=== PATIENT | female | born 1930 | race Caucasian/White ===

== ENCOUNTER 2016-12-10 03:25 | Inpatient (IN) | payer MEDICAID, OTHER ==
[~2016-12-10] VITALS: Ht 154.9 cm; Wt 74.4 kg
[~2016-12-10 03:25] MED LIST: DIVA250E1 PO; LISI10TA11 PO; METF500T PO; RISP1TAB1 PO; SIMV20TA1 PO; [UNRECOGNIZED DRUG - CODE] PO
[2016-12-10 03:43] VITALS: BP 149/81
[2016-12-10 04:13] LABS: BASOPHILS # (AUTO) 0.1 K/uL (0.00-0.22); BASOPHILS % (AUTO) 1.8 % (0.0-2.0); EOSINOPHILS % (AUTO) 0.5 % (0.0-4.0); HEMATOCRIT 39.8 % (36-48); HEMOGLOBIN 13.2 g/dL (12.0-16.0); LYMPHOCYTES # (AUTO) 0.5 K/uL (2.5-16.5); MEAN CORPUSCULAR HEMOGLOBIN 31 pg (27-31); MEAN CORPUSCULAR HGB CONC 33 g/dL (33-37); MEAN CORPUSCULAR VOLUME 93 fL (80-94); MONOCYTES # (AUTO) 0.4 K/uL (0.8-1.0); MONOCYTES % (AUTO) 5.3 % (1.7-9.3); NEUTROPHILS # (AUTO) 6.9 K/uL (1.8-7.7); NEUTROPHILS % (AUTO) 85.5 % (42.2-75.2); PLATELET COUNT (AUTO) 221 K/uL (140-450); RED BLOOD CELL COUNT(AUTO) 4.26 MIL/uL (4.20-5.40); RED CELL DISTRIBUTION WIDTH 12.8 % (11.6-13.7); WHITE BLOOD COUNT (AUTO) 7.9 K/uL (4.8-10.8)
[2016-12-10 04:22] LABS: LYMPHOCYTES % (AUTO) 6.9 % (20.5-51.1)
[2016-12-10 04:30] LABS: ALANINE AMINOTRANSFERASE 24 U/L (14-59); ALBUMIN 3.6 g/dL (3.4-5.0); ALKALINE PHOSPHATASE 70 U/L (46-116); ANION GAP 11.5 (8-16); ASPARTATE AMINOTRANSFERASE 130 U/L (15-37); CALCIUM 8.9 mg/dL (8.5-10.1); CARBON DIOXIDE 26.4 mmol/L (21-32); CHLORIDE 104 mmol/L (98-107); CREATININE 1.1 mg/dL (0.6-1.3); GLUCOSE 215 mg/dL (74-106); POTASSIUM 3.9 mmol/L (3.5-5.1); SODIUM SERUM 138 mmol/L (136-145); TOTAL BILIRUBIN 0.7 mg/dL (0.0-1.0); TOTAL PROTEIN, SERUM 7.6 g/dL (6.4-8.2); UREA NITROGEN, BLOOD 29 mg/dL (7-18)
--- NOTE | 2016-12-10 06:38 | NUR ---
PT TAKEN TO BED 8
--- NOTE | 2016-12-10 06:42 | NUR ---
86 Y/O F BIB FAMILY W/C/O ABD PAIN WHICH RADIATES TO THE BACK, N/V, AND CHILLS X TODAY. 12/30 PAIN. PT BREATHING IS UNLABORED AND CLEAR BILAT. HR EVEN AND REGULAR; PT DENIES ANY FEVER, CP, SOB, OR COUGH AT THIS TIME MED HX DM, HTN, DEMENTIA, SCHIZOPHRENIA,UTIs,PARKINSONS AND LEGALLY BLIND.
--- NOTE | 2016-12-10 07:18 | NUR ---
Pt report given to GOLDEN SANTILLAN . Transfer of care at this time.
--- NOTE | 2016-12-10 07:20 | NUR ---
REPORT RECEIVED FROM ARIES AMAYA. DR SALCIDO AT BEDSIDE.
--- NOTE | 2016-12-10 07:23 | NUR ---
Dr. Rosario evaluating patient at bedside.
--- NOTE | 2016-12-10 07:52 | NUR ---
# 14 FR IN N OUT catheter utilizing sterile technique. Immediate return of 100 ml SAW CLEAR urine noted. Bedside drainage bag placed below level of bladder. Urine sample collected and sent to lab. Pt tolerated procedure WELL.
--- NOTE | 2016-12-10 07:53 | NUR ---
US AT BEDSIDE.
--- NOTE | 2016-12-10 07:58 | NUR ---
PT TAKEN TO CT VIA GURNEY BY ELDON AND STUDENT TARI.
--- NOTE | 2016-12-10 08:19 | NUR ---
PT BACK FROM CT.
--- NOTE | 2016-12-10 08:53 | NUR ---
cytogenetics technologist at bedside.
[2016-12-10] MEDS ORDERED: ONDANSETRON 4 MG/2 ML VIAL IVP ONE (08:55)
[2016-12-10] MEDS ORDERED: NACL 0.9% 1,000 ML IV ONE (08:55)
--- NOTE | 2016-12-10 09:00 | NUR ---
PT VOMITING ER MADE AWARE. NEW ORDER FOR ZOFRAN.
[2016-12-10] MEDS ORDERED: MORPHINE SULFATE 4 MG/ML SYR IVP ONE (09:05)
--- NOTE | 2016-12-10 09:08 | NUR ---
xray at bedside.
--- NOTE | 2016-12-10 09:10 | NUR ---
22g IV TO LFA. MEDS GIVEN PER MAR. PT KATRIN WELL.
--- NOTE | 2016-12-10 10:15 | NUR ---
Patient will be admitted to care of DR. SCHULTE. Admited to Med/Surg. Will go to room 123-B. Belongings list completed. Report to TYRELL CLEMENTE.
--- NOTE | 2016-12-10 10:20 | NUR ---
PT PLACED ON 2L VIA N/C FOR PULSE OX 92%. ER MADE AWARE.
--- NOTE | 2016-12-10 10:51 | NUR ---
PT TAKEN TO FLOOR VIA GURNEY BY [facility].
--- NOTE | 2016-12-10 10:55 | NUR ---
PT ARRIVED ON UNIT WITH ER NURSE ON [facility]. PT IS SLEEPING. ON NC 2L, NO DISTRESS NOTED. VS WNL. PT HAS IV ON L F/A 22G SL. UNABLE TO ASSESS PT'S GAIT AND NEURO STATUS AT THIS TIME. WILL ASSESS WHEN PT WAKES UP. FALL PRECAUTION SIGN POSTED. CALL LIGHT WITHIN REACH. WILL CONTINUE TO MONITOR.
[2016-12-10 11:00] VITALS: BP 120/54
[2016-12-10] MEDS ORDERED: MORPHINE SULFATE 4 MG/ML SYR IVP PRN (11:10)
[2016-12-10] MEDS: DEXT 5% /NACL 0.9% 1,000 ML IV SCH ×2 (11:10→21:10)
[2016-12-10] MEDS ORDERED: MORPHINE SULFATE 2 MG/ML SYR IVP PRN (11:10)
[2016-12-10] MEDS ORDERED: ONDANSETRON 4 MG/2 ML VIAL IVP PRN (11:10)
[2016-12-10] MEDS: BLOOD GLUCOSE MONITORING 1 DEV DEV FS SCH ×3 (11:30→20:37)
[2016-12-10 12:00] VITALS: BP 115/54
--- NOTE | 2016-12-10 12:54 | NUR ---
PER GRANDDAUGHTER, PT IS LEGALLY BLIND. SIGN POSTED.
[2016-12-10] MEDS ORDERED: OLAN2.5T1 PO (13:44)
[2016-12-10] MEDS ORDERED: RISP0.5T PO (13:48)
--- NOTE | 2016-12-10 14:15 | NUR ---
GRANDDAUGHTER AND DAUGHTER AT BEDSIDE. UPDATED THEM ON PLAN OF CARE. ATTACHED LEAD CUSTODIAL ENGINEER CALL LIGHT AND TAUGHT PT TO USE CALL LIGHT. PT VERBALIZED UNDERSTANDING. CALL LIGHT IN PT'S HANDS, WILL CONTINUE TO MONITOR.
--- NOTE | 2016-12-10 14:32 | NUR ---
CM NOTE INITIAL REVIEW FAXED TO [facility] / FAX# [phone], ATTN: MOE [phone]
[2016-12-10 14:48] LABS: CHOL/HDL RATIO 2.8 (1-4.5)
[2016-12-10 16:00] VITALS: BP 107/54
--- NOTE | 2016-12-10 16:00 | NUR ---
VS WNL. ASKED PT IF WANTS PAIN MED, PT REFUSED. CALL LIGHT WITHIN REACH. WILL CONTINUE TO MONITOR.
--- NOTE | 2016-12-10 17:30 | NUR ---
NO DISTRESS NOTED. NO COMPLAINTS AT THIS TIME. CALL LIGHT WITHIN REACH. WILL CONTINUE TO MONITOR.
--- NOTE | 2016-12-10 19:30 | NUR ---
ENDORSED CARE OF PT TO NEGATIVE RESTORER NURSE AT BEDSIDE. PT IN STABLE CONDITION.
--- NOTE | 2016-12-10 19:31 | NUR ---
RECEIVED ENDORSEMENT FROM AM NURSE. PT IS SLEEPING, NO S/S OF DISTRESS. NO COMPLAINTS OF PAIN AT THIS TIME. PT HAS AN IV ON THE LEFT FOREARM, 22G, INTACT AND PATENT. RE-ORIENTED PT TO THE UNIT, DISCUSSED PLAN OF CARE WITH PATIENT, NEEDS REINFORCEMENT NEEDED. CALL LIGHT WITHIN REACH. SAFETY CHECKS IN PLACE. WILL CONTINUE TO MONITOR FOR ANY CHANGES.
[2016-12-10] MEDS: DIVALPROEX SPRINKLES 125 MG CAPDR PO SCH (20:51)
[2016-12-10] MEDS: SIMVASTATIN 20 MG TAB PO SCH (20:51)
[2016-12-10] MEDS: FAMOTIDINE 20 MG TAB PO SCH (20:51)
--- NOTE | 2016-12-10 21:30 | NUR ---
DUE MEDS GIVEN, WELL TOLERATED. WILL CONTINUE TO MONITOR.
[2016-12-11] VITALS: BP 97/56
--- NOTE | 2016-12-11 | NUR ---
VITAL SIGNS WITHIN NORMAL LIMITS, WILL CONTINUE TO MONITOR. NO S/S OF DISTRESS. SAFETY CHECKS IN PLACE.
--- NOTE | 2016-12-11 01:04 | NUR ---
MADE ROUNDS, PT IS SEEN ASLEEP. NO S/S OF DISTRESS. NO COMPLAINTS OF PAIN. WILL CONTINUE TO MONITOR FOR ANY CHANGES.
--- NOTE | 2016-12-11 03:25 | NUR ---
MADE ROUNDS, PT IS ASLEEP. NO S/S OF DISTRESS. NO COMPLAINTS OF PAIN. WILL CONTINUE TO MONITOR. SAFETY CHECKS IN PLACE.
--- NOTE | 2016-12-11 05:30 | NUR ---
PT SEEN ASLEEP, NO S/S OF DISTRESS. WILL CONTINUE TO MONITOR FOR CHANGES.
[2016-12-11] MEDS: DEXT 5% /NACL 0.9% 1,000 ML IV SCH ×3 (06:30→20:43)
[2016-12-11] MEDS: BLOOD GLUCOSE MONITORING 1 DEV DEV FS SCH ×4 (06:31→20:32)
--- NOTE | 2016-12-11 07:06 | NUR ---
ENDORSED TO AM NURSE FOR CONTINUITY OF CARE, IN STABLE CONDITION.
[2016-12-11 07:11] LABS: BASOPHILS # (AUTO) 0.2 K/uL (0.00-0.22); BASOPHILS % (AUTO) 4.6 % (0.0-2.0); EOSINOPHILS # (AUTO) 0.1 K/uL (0-0.4); EOSINOPHILS % (AUTO) 1.9 % (0.0-4.0); HEMATOCRIT 36.2 % (36-48); HEMOGLOBIN 11.6 g/dL (12.0-16.0); LYMPHOCYTES % (AUTO) 21.5 % (20.5-51.1); MEAN CORPUSCULAR HEMOGLOBIN 30 pg (27-31); MEAN CORPUSCULAR HGB CONC 32 g/dL (33-37); MEAN CORPUSCULAR VOLUME 94 fL (80-94); MONOCYTES # (AUTO) 0.4 K/uL (0.8-1.0); MONOCYTES % (AUTO) 9.1 % (1.7-9.3); NEUTROPHILS % (AUTO) 62.9 % (42.2-75.2); PLATELET COUNT (AUTO) 184 K/uL (140-450); RED BLOOD CELL COUNT(AUTO) 3.86 MIL/uL (4.20-5.40); WHITE BLOOD COUNT (AUTO) 4.8 K/uL (4.8-10.8)
[2016-12-11 07:28] LABS: ALANINE AMINOTRANSFERASE 38 U/L (14-59); ALBUMIN 2.6 g/dL (3.4-5.0); ALKALINE PHOSPHATASE 55 U/L (46-116); ASPARTATE AMINOTRANSFERASE 32 U/L (15-37); CALCIUM 7.7 mg/dL (8.5-10.1); CARBON DIOXIDE 28.3 mmol/L (21-32); CHLORIDE 110 mmol/L (98-107); CREATININE 0.9 mg/dL (0.6-1.3); GLUCOSE 133 mg/dL (74-106); POTASSIUM 3.3 mmol/L (3.5-5.1); SODIUM SERUM 144 mmol/L (136-145); TOTAL BILIRUBIN 0.5 mg/dL (0.0-1.0); TOTAL PROTEIN, SERUM 5.8 g/dL (6.4-8.2); UREA NITROGEN, BLOOD 16 mg/dL (7-18)
[2016-12-11 08:00] VITALS: BP 96/56
[2016-12-11] MEDS: risperiDONE 1 MG TAB PO SCH (08:13)
[2016-12-11] MEDS: DIVALPROEX SPRINKLES 125 MG CAPDR PO SCH ×2 (08:13→20:29)
[2016-12-11] MEDS: FAMOTIDINE 20 MG TAB PO SCH ×2 (08:14→20:29)
[2016-12-11] MEDS: ENOXAPARIN 30 MG/0.3 ML SYR SUBQ SCH (08:15)
[2016-12-11] MEDS: LISINOPRIL 10 MG TAB PO SCH (08:59)
--- NOTE | 2016-12-11 09:30 | NUR ---
PT GOT UP TO USE COMMODE WITH 1 ASSIST. TOLERATED WELL. ASSISTED BACK TO BED. CALL LIGHT WITHIN REACH. WILL CONTINUE TO MONITOR.
--- NOTE | 2016-12-11 11:30 | NUR ---
PT IS RESTING IN BED. NO COMPLAINTS AT THIS TIME. NO DISTRESS NOTED. CALL LIGHT WITHIN REACH. WILL CONTINUE TO MONITOR.
--- NOTE | 2016-12-11 13:00 | NUR ---
DR. SCHULTE EXAMINED PT IN ROOM. ORDERED POTASSIUM 40MEQ LIQUID FORM FOR PT'S LOW POTASSIUM LEVEL. ORDERED CLEAR LIQUID DIET. WILL CARRY OUT.
[2016-12-11] MEDS ORDERED: POTASSIUM CHLORIDE 20% 40 MEQ/15 ML UDC PO SCH (14:00)
--- NOTE | 2016-12-11 15:07 | NUR ---
PT IS RESTING IN BED. NO DISTRESS NOTED. CALL LIGHT WITHIN REACH. WILL CONTINUE TO MONITOR.
[2016-12-11 16:00] VITALS: BP 123/76
--- NOTE | 2016-12-11 17:33 | NUR ---
PT IS RESTING IN BED. NO DISTRESS NOTED. CALL LIGHT WITHIN REACH. WILL CONTINUE TO MONITOR.
--- NOTE | 2016-12-11 17:43 | NUR ---
SON AT BEDSIDE ASSIST WITH DINNER. PT TOLERATED JELLO WELL. CALL LIGHT WITHIN REACH. WILL CONTINUE TO MONITOR.
--- NOTE | 2016-12-11 19:30 | NUR ---
ENDORSED CARE OF PT TO BLOCK MASON NURSE AT BEDSIDE. PT IN STABLE CONDITION.
--- NOTE | 2016-12-11 19:35 | NUR ---
RECEIVED REPORT FROM TYRELL MILTON AT BEDSIDE. INITIAL ASSESSMENT COMPLETED. PT AAOX2; CONFUSED. PT LEGALLY BLIND. PT HAS IV ON LEFT FOREARM G 22; ASYMPTOMATIC, PATENT AND INTACT INFUSING FLUIDS WELL. PT'S SKIN IS INTACT. PT USES BED SIDE COMMODE WITH ASSIST. PT WEARING SCDS. ORIENTED PT TO ROOM AND SURROUNDINGS; PT NEEDS REINFORCEMENT. SAFETY/FALL RISK MEASURES IN PLACE. BED ALARM ON. WILL CONTINUE TO MONITOR PT.
[2016-12-11] MEDS: SIMVASTATIN 20 MG TAB PO SCH (20:29)
--- NOTE | 2016-12-11 20:45 | NUR ---
PT TOLERATED 2100 MEDS WELL. BED ALARM ON.
--- NOTE | 2016-12-11 22:05 | NUR ---
PT HAS A FEVER OF 100.6. WILL MEDICATE ORDERED.
[2016-12-11] MEDS: ACETAMINOPHEN 325 MG TAB PO PRN (22:08)
--- NOTE | 2016-12-11 22:15 | NUR ---
PT AGITATED TRYING TO GET OUT OF BED AND TRYING TO PULL OUT IV. PT IS CONFUSED. CALLED CHRIS HIGGINBOTHAM AND SHE GAVE ORDERS 0.5 MG ATIVAN IV PUSH Q12H FOR AGITATION/ANXIETY. WILL FOLLOW UP ON ORDERS.
--- NOTE | 2016-12-11 22:51 | NUR ---
CHECKED PT'S TEMPERATURE AND IT IS NOW 99.9. WILL CONTINUE TO MONITOR PT.
[2016-12-12] VITALS: BP 122/60
--- NOTE | 2016-12-12 00:15 | NUR ---
PT TRIED TO GET OUT OF BED. PT IS CONFUSED. SHE STATED THAT SHE WANTED TO GO OUTSIDE. PT BACK IN BED NOW. WILL CONTINUE TO MONITOR PT.
--- NOTE | 2016-12-12 03:36 | NUR ---
PT SLEEPING AT THIS TIME, NO SIGNS OF DISTRESS OR DISCOMFORT NOTED. WILL CONTINUE TO MONITOR PT.
--- NOTE | 2016-12-12 05:08 | NUR ---
PT PUT OUT HER IV WITH TIP INTACT. NEW IV STARTED ON LEFT FOREARM 20G. ONE ATTEMPT, PT TOLERATED IT WELL. BED ALARM ON.
--- NOTE | 2016-12-12 05:10 | NUR ---
PT CONFUSED, TRYING TO GET OUT OF BED. PT PULLED OUT HER IV. SHE STATES THAT SHE WANTS TO GO OUTSIDE. EXPLAINED OT PT THAT SHE IS IN THE HOSPITAL. REINFORCEMENT NEEDED. WILL MEDICATE ORDERED.
[2016-12-12] MEDS: LORazepam 2 MG/ML VIAL IM/IVP PRN ×2 (05:20→21:59)
[2016-12-12] MEDS: BLOOD GLUCOSE MONITORING 1 DEV DEV FS SCH ×4 (06:23→21:37)
[2016-12-12] MEDS: INSULIN LISPRO SLIDING SCALE 100 UNITS/ML VIAL SUBQ PRN ×2 (06:23→16:51)
[2016-12-12 06:42] LABS: BASOPHILS # (AUTO) 0.1 K/uL (0.00-0.22); BASOPHILS % (AUTO) 2.3 % (0.0-2.0); EOSINOPHILS # (AUTO) 0.1 K/uL (0-0.4); EOSINOPHILS % (AUTO) 2.3 % (0.0-4.0); HEMATOCRIT 38.6 % (36-48); HEMOGLOBIN 12.8 g/dL (12.0-16.0); LYMPHOCYTES # (AUTO) 1.2 K/uL (2.5-16.5); LYMPHOCYTES % (AUTO) 24.1 % (20.5-51.1); MEAN CORPUSCULAR HEMOGLOBIN 31 pg (27-31); MEAN CORPUSCULAR HGB CONC 33 g/dL (33-37); MEAN CORPUSCULAR VOLUME 93 fL (80-94); MONOCYTES # (AUTO) 0.4 K/uL (0.8-1.0); MONOCYTES % (AUTO) 8.3 % (1.7-9.3); NEUTROPHILS # (AUTO) 3.3 K/uL (1.8-7.7); PLATELET COUNT (AUTO) 181 K/uL (140-450); RED BLOOD CELL COUNT(AUTO) 4.15 MIL/uL (4.20-5.40); RED CELL DISTRIBUTION WIDTH 12.8 % (11.6-13.7); WHITE BLOOD COUNT (AUTO) 5.1 K/uL (4.8-10.8)
[2016-12-12 06:50] LABS: ALANINE AMINOTRANSFERASE 37 U/L (14-59); ALBUMIN 3.1 g/dL (3.4-5.0); ALKALINE PHOSPHATASE 67 U/L (46-116); ANION GAP 10.6 (8-16); ASPARTATE AMINOTRANSFERASE 23 U/L (15-37); CALCIUM 8.3 mg/dL (8.5-10.1); CARBON DIOXIDE 26.6 mmol/L (21-32); CHLORIDE 110 mmol/L (98-107); CREATININE 0.9 mg/dL (0.6-1.3); GLUCOSE 136 mg/dL (74-106); LIPASE 252 U/L (73-393); POTASSIUM 3.2 mmol/L (3.5-5.1); SODIUM SERUM 144 mmol/L (136-145); TOTAL BILIRUBIN 0.6 mg/dL (0.0-1.0); TOTAL PROTEIN, SERUM 6.8 g/dL (6.4-8.2); UREA NITROGEN, BLOOD 10 mg/dL (7-18)
--- NOTE | 2016-12-12 07:15 | NUR ---
ENDORSED PLAN OF CARE TO DAY SHIFT NURSE. PT IN STABLE CONDITION.
--- NOTE | 2016-12-12 07:16 | NUR ---
RECEIVED PT FROM RUFINO SANTILLAN AT BEDSIDE. PT IS A&OX2. PT HAS IV ON L F/A 20 G RUNNING D5NS@100. PT APPEARS TO BE AGITATED, TRYING TO TAKE OFF HER GOWN. REORIENTED PT AND ASSISTED IN PUTTING GOWN BACK. PT IS STILL VERY CONFUSED. SCDS ON. WILL MONITOR CLOSELY. CALL LIGHT WITHIN REACH.
[2016-12-12 08:00] VITALS: BP 143/71
[2016-12-12] MEDS: DIVALPROEX SPRINKLES 125 MG CAPDR PO SCH ×2 (08:16→21:25)
[2016-12-12] MEDS: FAMOTIDINE 20 MG TAB PO SCH ×2 (08:16→21:25)
[2016-12-12] MEDS: risperiDONE 1 MG TAB PO SCH ×2 (08:17→21:25)
[2016-12-12] MEDS: ENOXAPARIN 30 MG/0.3 ML SYR SUBQ SCH (08:17)
[2016-12-12] MEDS: LISINOPRIL 10 MG TAB PO SCH (08:17)
--- NOTE | 2016-12-12 09:00 | NUR ---
PT TOLERATED MORNING MEDS WELL WITH WATER. NO DISTRESS NOTED. CALL LIGHT WITHIN REACH. WILL CONTINUE TO MONITOR.
--- NOTE | 2016-12-12 09:47 | NUR ---
PATIENT HAS BEEN SCREENED AND CATEGORIZED HIGH NUTRITION RISK. PATIENT WILL BE SEEN WITHIN 1-2 DAYS OF ADMISSION. 12/11/16-12/12/[address]
[2016-12-12] MEDS: ACETAMINOPHEN 325 MG TAB PO PRN (09:55)
--- NOTE | 2016-12-12 09:55 | NUR ---
PT COMPLAINED TO SON OF GENERAL ACHE. ADMINISTERED TYLENOL. TOLERATED WELL. CALL LIGHT WITHIN REACH. WILL CONTINUE TO MONITOR.
--- NOTE | 2016-12-12 11:40 | NUR ---
PT IS SLEEPING IN BED. NO DISTRESS NOTED. CALL LIGHT WITHIN REACH. WILL CONTINUE TO MONITOR.
--- NOTE | 2016-12-12 13:00 | NUR ---
PT IS SLEEPING IN BED. NO DISTRESS NOTED. CALL LIGHT WITHIN REACH. WILL CONTINUE TO MONITOR.
[2016-12-12] MEDS: DEXT 5% /NACL 0.9% 1,000 ML IV SCH ×2 (13:10→22:01)
[2016-12-12] MEDS ORDERED: POTASSIUM CHLORIDE 10 MEQ TABER PO SCH (14:00)
--- NOTE | 2016-12-12 14:00 | NUR ---
PT GOT UP TO USE BEDSIDE COMMODE TO URINATE. 2-PERSON ASSIST. PT VERY WOBBLY AND CONFUSED. PT TOLERATED WELL. BACK TO BED. CALL LIGHT WITHIN REACH. WILL CONTINUE TO MONITOR. DAUGHTER AT BEDSIDE.
--- NOTE | 2016-12-12 15:02 | NUR ---
12/12/16 RD INITIAL ASSESSMENT COMPLETED PLEASE REFER TO NUTRITION ASSESSMENT UNDER CARE ACTIVITY FOR ESTIMATED NUTRITIONAL NEEDS. RD RECOMMENDATIONS: 1.CONTINUE CLEAR LIQUID DIET MEDICALLY APPROPRIATE. IF PT IS TO REMAIN ON CLEAR LIQUID AND CONTINUES WITH POOR PO INTAKE, CONSIDER ADDING BOOST BREEZE WITH MEALS FOR ADDITIONAL KCAL AND PROTEIN REPLETION. --NOTE PT CURRENT PO INTAKE IS MEETING ~21% OF PT ESTIMATED KCAL NEEDS AND ~9% OF PT ESTIMATED PROTEIN NEEDS WITH AN AVG PO INTAKE OS 50%. 2. IF/WHEN IS MEDICALLY STABLE TO ADVANCE DIET, CONSIDER ADVANCING TO CCHO 60 GM AND 2 GM SODIUM DIET D/T PT PMHX OF DM AND HTN. CONSIDER ORDERING A SWALLOW EVAL FOR TEXTURE RECOMMENDATIONS FROM ST. [address]. RD WILL F/U 2-3 DAYS; HIGH RISK. MANDY BAXTER RD
[2016-12-12 15:39] LABS: APPEARANCE,URINE CLEAR (CLEAR); BILIRUBIN,URINE NEGATIVE (NEGATIVE); BLOOD, URINE NEGATIVE (NEGATIVE); COLOR,URINE YELLOW (YELLOW); LEUKOCYTE ESTERASE ,URINE TRACE (NEGATIVE); NITRITE, URINE NEGATIVE (NEGATIVE); PH,URINE 6.5 (5.0-9.0); PROTEIN,URINE NEGATIVE (NEGATIVE); UGLUCOSE NEGATIVE (NEGATIVE); UROBILINOGEN,URINE 0.2 EU/dL (0.2 - 1)
--- NOTE | 2016-12-12 15:39 | NUR ---
PT TOLERATED POTASSIUM PILLS WELL. CALL LIGHT WITHIN REACH. WILL CONTINUE TO MONITOR. FAMILY AT BEDSIDE.
[2016-12-12 15:48] LABS: BACTERIA,URINE 1-9 (FEW) /HPF (None Seen); SQUAMOUS EPITHELIAL CELL,UR 4-10 (MOD) /LPF (0-3 (FEW))
[2016-12-12 16:00] VITALS: BP 121/76
--- NOTE | 2016-12-12 16:56 | NUR ---
FAMILY AT BEDSIDE. NO DISTRESS NOTED. CALL LIGHT WITHIN REACH. WILL CONTINUE TO MONITOR.
--- NOTE | 2016-12-12 18:21 | NUR ---
PT IS RESTING IN BED. NO DISTRESS NOTED. CALL LIGHT WITHIN REACH. WILL CONTINUE TO MONITOR.
--- NOTE | 2016-12-12 19:15 | NUR ---
ENDORSED CARE OF PT TO [place] BEDSPREAD INSPECTOR CHARGE NURSE AT BEDSIDE. PT IN STABLE CONDITION.
--- NOTE | 2016-12-12 19:47 | NUR ---
RECEIVED REPORT, ASSUMED CARE. PT SOUND ASLEEP AT THIS TIME. RESPIRATION EVEN AND UNLABORED, NO SOB. NO FACIAL GRIMACING OR MOANING INDICATING PAIN AT THIS TIME. FALL PRECAUTION IN PLACE. WILL CONTINUE TO MONITOR. CALL LIGHT WITHIN EASY REACH.
[2016-12-12] MEDS: SIMVASTATIN 20 MG TAB PO SCH (21:25)
--- NOTE | 2016-12-12 21:37 | NUR ---
ALL DUE MEDS ADMINISTERED BUT PT REQUIRES A LOT OF PROMPTING AND CUEING. BLOOD SUGAR 86 MG/DL WITH NO INSULIN COVERAGE PER SLIDING SCALE. PT CONFUSED, CONSTANTLY WANTING TO GET OUT OF BED UNASSISTED PLACING HER AT RISK FOR FALL. PT STATES SHE'S TIRED AND WANTS TO PRAY. EDUCATED PT ON FALL PREVENTION AND SAFETY. PT UNABLE TO VERBALIZE UNDERSTANDING AND UNCOOPERATIVE AT THIS TIME. FALL PRECAUTION IN PLACE AT ALL TIMES. WILL CONTINUE TO MONITOR.
--- NOTE | 2016-12-12 21:59 | NUR ---
PT CONTINUOUSLY ANXIOUS, AGITATED AND TRYING TO GET OUT OF BED. PT SWINGING ARMS AT STAFF WHEN REDIRECTED. UNABLE TO FOLLOW REDIRECTIONS. ATIVAN 0.5MG IVP ADMINISTERED. WILL CONTINUE TO MONITOR. FALL PRECAUTION IN PLACE. VS 121/56 95 20 98.2 96%RA.
--- NOTE | 2016-12-12 22:30 | NUR ---
PT'S IV ACCESS TO LT FOREARM INFILTRATED FROM CONSTANTLY PULLING THE LINE. REDNESS NOTED TO SURROUNDING SITE. DISCONTINUED AND REMOVED THE CANNULA. INSERTED A NEW LINE TO RIGHT WRIST, GAUGE 22 X1 ATTEMPT WITH GOOD BLOOD RETURN. IV FLUIDS RESTARTED AND INFUSING WELL. WILL CONTINUE TO MONITOR.
--- NOTE | 2016-12-12 23:30 | NUR ---
PT ASSISTED TO COMMODE. PT HAD MODERATE AMOUNT OF YELLOW URINE OUTPUT. GOOD HYGIENE RENDERED. KEPT COMFORTABLE IN BED. WILL CONTINUE TO MONITOR. PT A LITTLE CALMER AT THIS TIME.
[2016-12-13] VITALS: BP 105/59
--- NOTE | 2016-12-13 00:30 | NUR ---
ROUNDS MADE, PT SLEEPING AT THIS TIME WITH NO S/S OF RESPIRATORY DISTRESS. WILL CONTINUE TO MONITOR. FALL PRECAUTION IN PLACE.
--- NOTE | 2016-12-13 02:15 | NUR ---
ROUNDS MADE, PT SOUND ASLEEP AT THIS TIME WITH NO S/S OF RESPIRATORY DISTRESS. WILL CONTINUE TO MONITOR.
--- NOTE | 2016-12-13 04:50 | NUR ---
ROUNDS MADE, PT SLEEPING AT THIS TIME WITH NO S/S OF RESPIRATORY DISTRESS. WILL CONTINUE TO MONITOR. FALL PRECAUTION IN PLACE. WILL CONTINUE TO MONITOR.
--- NOTE | 2016-12-13 05:50 | NUR ---
PT REMAINS ASLEEP BUT EASILY AROUSABLE.NO S/S OF RESPIRATORY DISTRESS. NO FACIAL GRIMACING OR MOANING INDICATING PAIN. WILL CONTINUE TO MONITOR.
[2016-12-13 05:51] LABS: BASOPHILS # (AUTO) 0.2 K/uL (0.00-0.22); BASOPHILS % (AUTO) 2.8 % (0.0-2.0); EOSINOPHILS # (AUTO) 0.1 K/uL (0-0.4); EOSINOPHILS % (AUTO) 2.1 % (0.0-4.0); HEMATOCRIT 35.6 % (36-48); HEMOGLOBIN 11.5 g/dL (12.0-16.0); LYMPHOCYTES % (AUTO) 16.6 % (20.5-51.1); MEAN CORPUSCULAR HEMOGLOBIN 30 pg (27-31); MEAN CORPUSCULAR HGB CONC 32 g/dL (33-37); MEAN CORPUSCULAR VOLUME 94 fL (80-94); MONOCYTES # (AUTO) 0.6 K/uL (0.8-1.0); MONOCYTES % (AUTO) 9.3 % (1.7-9.3); NEUTROPHILS # (AUTO) 4.3 K/uL (1.8-7.7); NEUTROPHILS % (AUTO) 69.2 % (42.2-75.2); PLATELET COUNT (AUTO) 189 K/uL (140-450); WHITE BLOOD COUNT (AUTO) 6.2 K/uL (4.8-10.8)
[2016-12-13 06:21] LABS: ALANINE AMINOTRANSFERASE 34 U/L (14-59); ALBUMIN 2.7 g/dL (3.4-5.0); ALKALINE PHOSPHATASE 58 U/L (46-116); ANION GAP 9.4 (8-16); ASPARTATE AMINOTRANSFERASE 20 U/L (15-37); CALCIUM 8.1 mg/dL (8.5-10.1); CHLORIDE 111 mmol/L (98-107); GLUCOSE 131 mg/dL (74-106); POTASSIUM 3.4 mmol/L (3.5-5.1); SODIUM SERUM 144 mmol/L (136-145); TOTAL BILIRUBIN 0.8 mg/dL (0.0-1.0); UREA NITROGEN, BLOOD 7 mg/dL (7-18)
[2016-12-13] MEDS: BLOOD GLUCOSE MONITORING 1 DEV DEV FS SCH ×4 (06:48→20:44)
--- NOTE | 2016-12-13 07:23 | NUR ---
PT STILL SLEEPING AT THIS TIME. PT IN STABLE CONDITION. ENDORSED TO NEXT SHIFT FOR CONTINUITY OF CARE.
--- NOTE | 2016-12-13 07:24 | NUR ---
RECEIVED REPORT AT BEDSIDE FOR CONTINUITY OF CARE, FROM THE UNIVERSAL GRINDER SET UP OPERATOR NURSE. PT IS SLEEPING. UPDATED THE BOARD. V/S WITHIN NORMAL. NOTED THE IV ON R WRIST 22G, D5NS 100ML INFUSING. NO SIGNS OF DISTRESS. NO FEVERS. PER UNIVERSAL GRINDER SET UP OPERATOR NURSE, PT MAY BE D/C'D TODAY. WILL CONTINUE TO MONITOR PT.
[2016-12-13 08:00] VITALS: BP 107/54
[2016-12-13] MEDS: ENOXAPARIN 30 MG/0.3 ML SYR SUBQ SCH (09:27)
[2016-12-13] MEDS: risperiDONE 1 MG TAB PO SCH ×2 (09:28→20:45)
[2016-12-13] MEDS: DIVALPROEX SPRINKLES 125 MG CAPDR PO SCH ×2 (09:28→20:45)
[2016-12-13] MEDS: FAMOTIDINE 20 MG TAB PO SCH ×2 (09:28→20:45)
[2016-12-13] MEDS: DEXT 5% /NACL 0.9% 1,000 ML IV SCH (09:28)
[2016-12-13] MEDS: LISINOPRIL 10 MG TAB PO SCH (09:28)
--- NOTE | 2016-12-13 09:35 | NUR ---
ADMINISTERED MORNING MEDS. CRUSHED AND IN PUDDING. PT TOLERATED WELL. SON AND GRANDDAUGHTER HERE. WANTED TO KNOW WHEN WILL SHE BE D/C'D AND WOULD LIKE TO KNOW SOME INFORMATION ABOUT SNF PLACEMENT. WILL CALL SS TO COME BY. WILL CONTINUE TO MONITOR PT.
--- NOTE | 2016-12-13 10:32 | NUR ---
SS WORKING ON SNF RETIREMENT ACTUARY CARE PLACEMENT. ORDER FOR PT EVAL PLACED.
--- NOTE | 2016-12-13 10:38 | NUR ---
SS NOTE: SENT SENIOR CARE SNF PLACEMENT INQUIRIES TO: - [facility] - [facility] - [facility] - [facility] - [facility] - [facility] - [facility] IN [place]
[2016-12-13] MEDS: INSULIN LISPRO SLIDING SCALE 100 UNITS/ML VIAL SUBQ PRN (12:19)
--- NOTE | 2016-12-13 12:57 | NUR ---
PT SLEEPING. NO SIGNS OF DISTRESS. GRANDDAUGHTER HERE. WILL WAKE HER UP AND FEED HER.
--- NOTE | 2016-12-13 13:01 | NUR ---
SS NOTE: PER CAMPOS FROM [facility], THEY DO NOT HAVE ANY FEMALE BEDS AVAILABLE ON THEIR SNF SIDE PER LEOLA FROM [facility], THEY ARE UNABLE TO ACCEPT PT PER DAYNE FROM [facility], NO [facility] FEMALE BEDS AVAILABLE PER RELL FROM [facility], THEY ARE UNABLE TO ACCEPT PT PER LAILA FROM [facility], THEY RECEIVED PT'S INFORMATION AND WILL HAVE THEIR DIRECTOR OF NURSES REVIEW THE INFORMATION
--- NOTE | 2016-12-13 13:28 | NUR ---
CM NOTE CONCURRENT REVIEW FAXED TO [facility] FAX# [phone] ATTN: MOE [phone]
[2016-12-13] MEDS ORDERED: POTASSIUM CHLORIDE 10 MEQ TABER PO SCH (13:55)
--- NOTE | 2016-12-13 14:20 | NUR ---
P/T WAS HERE FOR EVALUATION
[2016-12-13] MEDS ORDERED: POTASSIUM CHLORIDE 20% 40 MEQ/15 ML UDC PO SCH (15:00)
--- NOTE | 2016-12-13 15:19 | NUR ---
CM NOTE PER [facility] ROSA, AUTH FOR [facility] ESQUIVEL [id number]. SPOKE WITH CRYSTAL BLAIR WILLIAMSON [phone] TO SET UP TRANSPORT, PHARMACIST PER DIEM TIME 1930 TODAY GOING TO [facility] IN [place] RM 112 D, ACCEPTING DR. Peyton CAVAZOS, NUMBER TO CALL FOR REPORT [phone]. BHARAT SESAY AND NURSE CARRERA AWARE. Addendum: 12/13/16 at 1531 by Catherine Fournier CM PER [facility] CM MOE PH [phone] [facility] AUTH# [id number] FOR [facility]
--- NOTE | 2016-12-13 15:26 | NUR ---
SS NOTE: PER ELDON FROM [facility] ([phone]), THEY ARE ABLE TO ACCEPT PT AND PT CAN GO TO ROOM 112[address] UNDER DR. MICHAEL CAVAZOS SOON THEY RECEIVE AUTH FROM PT'S INSURANCE. I SPOKE WITH PT'S GRANDDTRYANNA ([phone]) AND PROVIDED HER WITH THE ABOVE INFORMATION. SHE STATED THAT SHE AND PT'S SON ARE IN AGREEMENT WITH PT GOING THERE UPON DISCHARGE TODAY. Addendum: 12/13/16 at 1530 by Mallorie Cortes SS PER ANIKET FROM [facility], NO SENIOR CARE BEDS AVAILABLE PER SANJEEV FROM [facility], NO SENIOR CARE BEDS AVAILABLE
[2016-12-13 16:00] VITALS: BP 92/59
--- NOTE | 2016-12-13 16:20 | NUR ---
SPOKE TO TYRELL ALANIZ AT [facility], IN [place]. [phone]. PT TO GO TO 112D, ATTENDING: DR. CAVAZOS[facility]. WORKING ON DISCHARGE PAPERWORK.
--- NOTE | 2016-12-13 16:40 | NUR ---
PT'S BS LEVEL AT 63. PT DIDN'T WAKE UP FOR LUNCH. GAVE INSULIN 6 UNITS. WOKE PT UP, GAVE HER CHOCOLATE PUDDING AND APPLE JUICE. WILL RECHECK BS. PT ASYMPTOMATIC. JUST SLEEPY.
--- NOTE | 2016-12-13 18:30 | NUR ---
GRANDDAUGHTER HERE. WENT OVER THE DISCHARGE PAPER WORK WITH PT AND GRANDDAUGHTER. ANSWERED ALL QUESTIONS. GRANDDAUGHTER VERBALIZED UNDERSTANDING. REMOVED IV, CANNULA INTACT. NO BLEEDING NOTED. HAND PRESSER CHANGED PT INTO TRANSPORT GOWN. ALL PERSONAL BELONGING PACKED AND READY TO GO. PT IS RESTING COMFORTABLY. PT WILL BE GOING TO [facility], ROOM 112D. WAITING ON [facility], TRANSPORT.
--- NOTE | 2016-12-13 19:20 | NUR ---
ENDORSED PT TO THE ELECTRICAL HELPER NURSE. PT IS READY TO GO. DISCHARGE ALL DONE. JUST WAITING FOR TRANSPORT TO ARRIVE. GRANDDAUGHTER HERE. PT IN STABLE CONDITION.
--- NOTE | 2016-12-13 19:21 | NUR ---
RECEIVED REPORT FROM AM NURSE. PT IS AOX1-2, CONFUSED. NO S/S OF DISTRESS. FLACC - 0. VS STABLE. IS FOR DISCHARGE. AWAITING FOR TRANSPORT.
[2016-12-13 20:00] VITALS: BP 100/61
[2016-12-13] MEDS: SIMVASTATIN 20 MG TAB PO SCH (20:45)
--- NOTE | 2016-12-13 20:45 | NUR ---
DUE MEDS GIVEN, WELL TOLERATED BY PT. WILL CONTINUE TO MONITOR FOR ANY CHANGES. NO S/S OF DISTRESS. NO COMPLAINTS OF PAIN AT THIS TIME.
--- NOTE | 2016-12-13 21:00 | NUR ---
EMBROIDERY SUPERVISOR CALLED [facility] ON THEIR ESTIMATED TIME OF ARRIVAL
--- NOTE | 2016-12-13 23:15 | NUR ---
CHARGE NURSE CALLED [facility] AGAIN FOR THEIR ESTIMATED TIME OF ARRIVAL.
--- NOTE | 2016-12-13 23:45 | NUR ---
PT LEFT VIA GURNEY WITH [facility] TO [facility]. WRIST BANDS REMOVED. BELONGINGS TAKEN WITH PATIENT. IN STABLE CONDITION.
== END 2016-12-13 23:50 | DRG 282 ==
LOC: MED 03:25 → MTU 11:17
PROVIDERS: ADMIT Hospitalist; ATTEND Hospitalist
DX: K85.90 Acute pancreatitis without necrosis or infection, unspecified (principal); G20 Parkinson's disease; F02.80 Dementia in other diseases classified elsewhere, unspecified severity, without behavioral disturbance, psychotic disturbance, mood disturbance, and anxiety; E11.9 Type 2 diabetes mellitus without complications; I10 Essential (primary) hypertension; F20.9 Schizophrenia, unspecified; Z79.899 Other long term (current) drug therapy
CPT/HCPCS: 36415; 71010; 76705; 80053; 81001; 82948; 83690; 85025; 87040; 87081; 87086; 96361; 96374; 96375; 99285; C1758; J1650; J1815; J2060; J2270; J2405; J7030; J7042; Q0092